=== PATIENT | female | born 1955 | race Caucasian/White ===

== ENCOUNTER → 2020-05-29 14:56 | Outpatient (BNVA) | payer OTHER, SELFPAY | PROVIDERS: Family Provider Family Medicine; Visit Provider Nurse Practitioner Family | DX: Z20.828 Contact with and (suspected) exposure to other viral communicable diseases (principal) | CPT/HCPCS: 87635 ==

== ENCOUNTER 2020-07-09 09:56 | Outpatient (CLI) | payer OTHER, SELFPAY ==
--- NOTE | 2020-07-09 10:01 | MM_ITS ---
WS: [id number] BILATERAL DIGITAL SCREENING MAMMOGRAPHY WITH CAD CLINICAL INFORMATION: SCREENING HISTORY: Screening mammogram. No current complaints. COMPARISON: TECHNIQUE: Bilateral CC and MLO views. FINDINGS: Scattered fibroglandular densities bilaterally. No suspicious focal mass, asymmetry, calcifications, or architectural distortion. No evidence of malignancy. Punctate and lucent centered calcifications. Stable intramammary lymph node upper left breast. MM/[place] [id number] IMPRESSION: BI-RADS: 2-Benign FOLLOW UP: 1 Year Follow-up Recommend return to annual screening mammography.
== END 2020-07-09 09:57 | disposition home or self-care (01) ==
LOC: RADSHAW 09:59
PROVIDERS: PCP Family Medicine; Visit Provider Family Medicine
DX: Z12.31 Encounter for screening mammogram for malignant neoplasm of breast (principal)
CPT/HCPCS: 77067

== ENCOUNTER 2021-05-20 08:23 | Outpatient (CLI) | payer OTHER, SELFPAY ==
--- NOTE | 2021-05-20 08:45 | US_ITS ---
WS: [id number] ULTRASOUND THYROID TECHNIQUE: Ultrasound of the thyroid. CLINICAL INFORMATION: thyroid nodule COMPARISON: Ultrasound 2016 and thyroid scintigraphy 2016 FINDINGS: Thyroid: Right and left thyroid lobes are normal in size with heterogeneous echotexture. Bilateral th yroid nodules. Largest complex nodule in the right measuring 0.5 x 0.7 x 0.9 cm and the largest solid heterogeneous nodule in the left measuring 3.1 x 2.9 x 3.2 cm in the mid thyroid. Right thyroid lobe: 5.7 cm x 1.9 cm x 1.9 cm Left thyroid lobe: 5.5 cm x 3.1 cm x 3.3 cm. Isthmus: 0.5 mm. Cervical lymphadenopathy: None. US/US thyroid [id number] IMPRESSION: 1. Enlarged heterogeneous thyroid similar in appearance to 2016 compatible wit h multinodular goiter. 2. Largest complex nodule in the right measuring 0.5 x 0.7 x 0.9 cm and the la rgest solid heterogeneous nodule in the left measuring 3.1 x 2.9 x 3.2 cm in th e mid thyroid. These are new or progressed compared to 2016. 3. Dominant left-sided nodule can be further evaluated with FNA.
== END 2021-05-20 08:24 | disposition home or self-care (01) ==
LOC: RAD 08:25
PROVIDERS: PCP Family Medicine; Visit Provider Internal Medicine
DX: E04.1 Nontoxic single thyroid nodule (principal); E04.9 Nontoxic goiter, unspecified
CPT/HCPCS: 76536

== ENCOUNTER → 2021-07-01 10:10 | Outpatient (BNVA) | payer OTHER, SELFPAY | PROVIDERS: PCP Family Medicine; Visit Provider Internal Medicine | DX: E03.9 Hypothyroidism, unspecified (principal); E05.90 Thyrotoxicosis, unspecified without thyrotoxic crisis or storm; E04.1 Nontoxic single thyroid nodule; F17.200 Nicotine dependence, unspecified, uncomplicated | CPT/HCPCS: 99214 ==

== ENCOUNTER → 2021-08-11 13:35 | Outpatient (BNVA) | payer OTHER, SELFPAY | PROVIDERS: PCP Family Medicine; Visit Provider Nurse Practitioner Family | DX: Z20.822 Contact with and (suspected) exposure to COVID-19 (principal) | CPT/HCPCS: 87635 ==

== ENCOUNTER 2021-09-08 08:56 | Outpatient (CLI) | payer OTHER, SELFPAY ==
[2021-09-08 10:46] LABS: Thyroid Stimulating Hormone 2.21 uIU/mL (0.27-4.20)
[2021-09-08 21:23] LABS: Free T4 Free Thyroxine 1.48 ng/dL (0.82-1.77)
[2021-09-09 09:47] LABS: T3 Total 116 ng/dL (76-181)
== END 2021-09-08 08:57 | disposition home or self-care (01) ==
LOC: RAD 09:01
PROVIDERS: PCP Family Medicine; Visit Provider Internal Medicine
DX: E04.1 Nontoxic single thyroid nodule (principal); E05.90 Thyrotoxicosis, unspecified without thyrotoxic crisis or storm
CPT/HCPCS: 36415; 84439; 84443; 84480

== ENCOUNTER 2021-09-09 10:36 | Outpatient (CLI) | payer OTHER, SELFPAY ==
--- NOTE | 2021-09-09 10:52 | MM_ITS ---
WS: [id number] BILATERAL DIGITAL SCREENING MAMMOGRAPHY WITH CAD CLINICAL INFORMATION: SCREENING HISTORY: Screening mammogram. No current complaints. COMPARISON: July 09, 2020 TECHNIQUE: Bilateral CC and MLO views. FINDINGS: Scattered fibroglandular densities bilaterally. Punctate and lucent centered calcifications. Stable o void intramammary lymph node upper outer LEFT breast. No suspicious focal mass, asymmetry, calcificat ions, or architectural distortion. No evidence of malignancy. MM/[place] [id number] IMPRESSION: BI-RADS: 2-Benign FOLLOW UP: 1 Year Follow-up Recommend return to annual screening mammography.
== END 2021-09-09 10:37 | disposition home or self-care (01) ==
LOC: RADSHAW 10:38
PROVIDERS: PCP Family Medicine; Visit Provider Family Medicine
DX: Z12.31 Encounter for screening mammogram for malignant neoplasm of breast (principal)
CPT/HCPCS: 77067

== ENCOUNTER 2021-09-15 09:08 | Outpatient (CLI) | payer OTHER, SELFPAY ==
--- NOTE | 2021-09-15 09:18 | NM_ITS ---
WS: [id number] NUCLEAR MEDICINE 24 HOUR I-123 THYROID UPTAKE INDICATION: Thyroid nodule TECHNIQUE: I-123 24 HOUR THYROID UPTAKE WITH PLANAR IMAGING. 131 UCI MANOJ 123 COMPARISON: Ultrasound May 20, 2021 and thyroid uptake December 03, 2015. Prior ultrasounds November 09, 2015 FINDINGS: Imaging performed at 24 hours post ingestion of iodine capsule. Marker placed over the chin and suprasternal notch. Elevated 24hour thyroid uptake measuring 61.9%. This is increased since 2016. Increased radiotracer a ctivity in the LEFT upper lobe thyroid nodule. More normal-appearing uptake in the RIGHT thyroid lobe . No cold nodules. NORMAL 24H THRYOID UPTAKE 8-35% NM/NM thyroid uptake multi [id number] IMPRESSION: 1. Elevated 24-hour thyroid uptake 61.9% (normal 8-35%). This is increased sin ce December 03, 2015 where it measured 14%. Recommend correlation for hyperthyroidis m/thyroiditis. 2. Increased uptake in a LEFT upper thyroid lobe nodule similar to 2016. No co ld nodules.
== END 2021-09-15 09:09 | disposition home or self-care (01) ==
LOC: RAD 09:11
PROVIDERS: PCP Family Medicine; Visit Provider Internal Medicine
DX: E04.1 Nontoxic single thyroid nodule (principal)
CPT/HCPCS: 78014; A9516

== ENCOUNTER 2021-10-06 10:03 | Outpatient (CLI) | payer OTHER, SELFPAY ==
[2021-10-06 11:22] LABS: Free T4 Free Thyroxine 1.39 ng/dL (0.82-1.77); Thyroid Stimulating Hormone 1.21 uIU/mL (0.27-4.20)
[2021-10-07 10:32] LABS: T3 Total 115 ng/dL (76-181)
== END 2021-10-06 10:04 | disposition home or self-care (01) ==
PROVIDERS: PCP Family Medicine; Visit Provider Internal Medicine
DX: E05.10 Thyrotoxicosis with toxic single thyroid nodule without thyrotoxic crisis or storm (principal)
CPT/HCPCS: 84439; 84443; 84480

== ENCOUNTER 2021-11-04 07:31 | Day surgery (SDC) | payer OTHER, SELFPAY ==
--- NOTE | 2021-11-04 08:24 | ANES.PREANE2 ---
Pre-Anesthetic Assessment Height/Weight: Height 1.57 m Weight 120.202 kg Preop Diagnosis: HISTORY OF COLON POLYPS Operation Date: 11/04/21 09:00 Proposed Procedures p Colonoscopy 99141/z86.010(Not Applicable) - Bereket Corado MD Familial anesthetic complications: None Was Beta Gely taken within 24 hours: Yes (11/04/21) Was Clonidine taken within 24 hours: N/A Last intake: 11/03/21 Social Tobacco and No alcohol Exam alert, oriented x 3, clear to auscultation bilaterally and regular rate & rhythm Airway Submandibular: within normal limits Cervical ROM: within normal limits Mallampati: Class III Dentition: chipped Pulmonary Stop Bang Score of 6 CV/HEM Hypertension None reported Hepatic None reported GI None reported Metabolic Morbid Obesity and Thyroid Disease (Hyperthyroidism - TSH, T4, T3 on 09/2021 WNL ) Musc/skel Osteoarthritis/DJD Neuropsych None reported Anesthetic Plan ASA status: 3 (66 year old morbidly obese female smoker w/ hyperthyroidism and stop bang score of 6) Anesthesia: Anesthesia Evaluation, General and MAC Other: I discussed with the patient risks, goals, and benefits of MAC and general anesthesia. We discussed spectrum of MAC anesthesia including conversion to general as well as possibility of recall of intraoperative stimuli including discomfort/pain. Patient agrees to proceed with MAC. Risk of > 500 ml blood loss (7ml/kg in children): No Medications/Allergies Home Medications Medication Instructions Recorded Confirmed Last Taken Type methimazole 5 mg tablet 5 mg PO DAILY #90 tab 04/12/21 11/02/21 Unknown Rx carvedilol 12.5 mg tablet 12.5 mg PO BID 07/01/21 11/02/21 Unknown History lisinopril 20 1 tab PO DAILY 07/01/21 11/02/21 Unknown History mg-hydrochlorothiazide 12.5 mg tablet Allergies Allergy/AdvReac Type Severity Reaction Status Date / Time Sulfa (Sulfonamide Allergy upset Verified 10/14/21 11:12 Antibiotics) stomach PFSH Anesthesia Medical History Thyroid nodule Surgical History No pertinent past surgical history Family History Mother Hypertension Diabetes Father No problems noted. Denies family history of Dementia Social History Smoking and tobacco status: former smoker Alcohol intake: never Data Anesthesia Cardiac Studies: No Data to Display
[2021-11-04 08:36] VITALS: BP 166/95; PULSE 71; RESP 18; TEMP 36.6; O2SAT 100
[2021-11-04] MEDS: sodium chloride 0.9% 1,000 ML 30 ML IV (08:47)
--- NOTE | 2021-11-04 08:58 | W.PM.OPSFHP ---
Same Day Surgery H&P Indication for Procedure/HPI DATE OF PROCEDURE: November 04, 2021 CHIEF COMPLAINT/INDICATIONFOR SURGICAL PROCEDURE: History of colon polyps PREOP DIAGNOSIS: HISTORY OF COLON POLYPS PLANNED PROCEDURE: Operation Date: 11/04/21 09:00 Proposed Procedures p Colonoscopy 41588/z86.010(Not Applicable) - Bereket Corado MD 08/19/2021 This is a pleasant 66 years old female patient well-known to me before 4 years where she did undergo colonoscopy was found to have colon polyps.? Patient denies any bleeding per rectum or history of colon cancer.? Patient is referred to my practice for surveillance colonoscopy. 11/04/21 Patient comes today for surveillance colonoscopy ROS All systems have been reviewed negative except as per the above or per problem Medications/Allergies* Home Medications Medication Instructions Recorded Confirmed Type carvedilol 12.5 mg tablet 12.5 mg PO BID 07/01/21 11/04/21 History lisinopril 20 1 tab PO DAILY 07/01/21 11/04/21 History mg-hydrochlorothiazide 12.5 mg tablet Allergies/Adverse Reactions Allergy/AdvReac Type Severity Reaction Status Date / Time Sulfa (Sulfonamide Allergy upset Verified 11/04/21 08:59 Antibiotics) stomach Current Medications: Generic Name Dose Route Start Last Admin Trade Name Freq PRN Reason Stop Dose Admin Sodium Chloride 1,000 mls @ 30 mls/hr 11/04/21 08:00 11/04/21 08:47 Sodium Chloride 0.9% IV 30 mls/hr .Q24H ALVIN Administration Pertinent History/Comorbid Conditions* Medical History (Updated 08/20/21 @ 13:09 by Bereket Corado MD) Thyroid nodule Surgical History (Updated 03/25/21 @ 13:22 by Tanvir Piper MD) No pertinent past surgical history Family History (Updated 05/29/20 @ 12:42 by Mckenzie Matta LPN) Diabetes Mother Hypertension Mother Denies family history of Dementia Social History Smoking and tobacco status: former smoker Alcohol intake: never Pertinent Exam Findings alert, oriented x 3, regular rate & rhythm and procedure specific exam findings (Abdominal examination nontender nondistended soft) Recommendations Surgery/Procedure today ( Surveillance colonoscopy) Coding Level of Care Code Acute Signs And Displays Sales Representative for Alba Bertrand
[2021-11-04 10:13] VITALS: BP 120/63; PULSE 88; RESP 18; TEMP 36.5; O2SAT 97
[2021-11-04 10:25] VITALS: BP 138/74; PULSE 65; RESP 18; TEMP 36.7; O2SAT 95
--- NOTE | 2021-11-04 13:51 | ANE.PACU2 ---
Inpatient post-anesthesia follow up: Airway intact: Yes Vital signs: Temperature 98.1 F Pulse Rate 65 Respiratory Rate 18 Blood Pressure 138/74 Pulse Oximetry 95 Oxygen Delivery Me thod Room Air Oxygen Flow Rate Fraction of Inspir ed Oxygen Hydration adequate: Yes Nausea and vomiting: No Pain level: 1 Mental status: Baseline
== END 2021-11-04 10:40 | disposition home or self-care (01) ==
PROVIDERS: PCP Family Medicine; Visit Provider Surgery
PROC: 0DJD8ZZ Inspection of Lower Intestinal Tract, Via Natural or Artificial Opening Endoscopic (ICD-10-PCS; CPT 45378; principal; 2021-11-04 09:00)
DX: Z12.11 Encounter for screening for malignant neoplasm of colon (principal); D12.8 Benign neoplasm of rectum; K57.30 Diverticulosis of large intestine without perforation or abscess without bleeding; Z86.010 Personal history of colon polyps; Z82.49 Family history of ischemic heart disease and other diseases of the circulatory system; Z83.3 Family history of diabetes mellitus; Z87.891 Personal history of nicotine dependence; E66.01 Morbid (severe) obesity due to excess calories; Z68.42 Body mass index [BMI] 45.0-49.9, adult; E03.9 Hypothyroidism, unspecified
CPT/HCPCS: 45380; 88305; J2704; J7030

== ENCOUNTER 2021-12-23 09:10 | Outpatient (CLI) | payer OTHER, SELFPAY ==
--- NOTE | 2021-12-23 09:30 | US_ITS ---
WS: [id number] ULTRASOUND THYROID FNA CLINICAL INFORMATION: thyroid nodule TECHNIQUE: Ultrasound-guided FNA FINDINGS: The procedure including risks, benefits, and complications were discussed with the patient who agreed to proceed. Timeout was performed. Using sterile technique patient was prepped and draped in usual sterile fashion. After 1% lidocaine, using ultrasound guidance, a 25-gauge needle was advanc ed into the LEFT thyroid nodule. 5 passes were made with active aspiration. Pathology was present for slide preparation. No immediate complications. Patient remained in the ultrasound suite 20 minutes postprocedure with intermittent ultrasound to ens ure no hematoma. No hematoma 15 minutes postprocedure. US/US biopsy/FNA thyroid [id number] IMPRESSION: 1. Uncomplicated ultrasound-guided thyroid FNA 2. Cytology is pending.
== END 2021-12-23 09:11 | disposition home or self-care (01) ==
PROVIDERS: PCP Family Medicine; Visit Provider Internal Medicine
DX: E04.1 Nontoxic single thyroid nodule (principal)
CPT/HCPCS: 10005; 88173; 88305

== ENCOUNTER → 2022-04-14 13:12 | Outpatient (BNVA) | payer OTHER, SELFPAY | PROVIDERS: PCP Family Medicine; Visit Provider Family Medicine | DX: E05.90 Thyrotoxicosis, unspecified without thyrotoxic crisis or storm (principal); E04.1 Nontoxic single thyroid nodule | CPT/HCPCS: 84439; 84443; 84480 ==

== ENCOUNTER → 2022-06-30 12:23 | Outpatient (BNVA) | payer OTHER, SELFPAY | PROVIDERS: PCP Family Medicine; Visit Provider Family Medicine | DX: Z51.81 Encounter for therapeutic drug level monitoring (principal); R73.03 Prediabetes; I10 Essential (primary) hypertension | CPT/HCPCS: 80053; 80061; 83036; 85025 ==

== ENCOUNTER → 2022-10-04 10:56 | Outpatient (BNVA) | payer MEDICARE, SELFPAY | PROVIDERS: PCP Family Medicine; Visit Provider Family Medicine | DX: Z51.81 Encounter for therapeutic drug level monitoring (principal); R74.8 Abnormal levels of other serum enzymes; E05.90 Thyrotoxicosis, unspecified without thyrotoxic crisis or storm; E04.1 Nontoxic single thyroid nodule; I10 Essential (primary) hypertension; G47.10 Hypersomnia, unspecified | CPT/HCPCS: 80053; 86141 ==

== ENCOUNTER → 2023-03-03 10:54 | Outpatient (BNVA) | payer MEDICARE, SELFPAY | PROVIDERS: PCP Family Medicine; Visit Provider Family Medicine | DX: Z51.81 Encounter for therapeutic drug level monitoring (principal); Z13.220 Encounter for screening for lipoid disorders; E03.9 Hypothyroidism, unspecified; M79.10 Myalgia, unspecified site; F32.A Depression, unspecified; I10 Essential (primary) hypertension; G47.10 Hypersomnia, unspecified; E05.90 Thyrotoxicosis, unspecified without thyrotoxic crisis or storm | CPT/HCPCS: 80053; 80061; 83735; 84439; 84443; 85025 ==

== ENCOUNTER → 2023-03-16 15:14 | Outpatient (BNVA) | payer MEDICARE, SELFPAY | PROVIDERS: PCP Family Medicine; Visit Provider Family Medicine | DX: R79.89 Other specified abnormal findings of blood chemistry (principal); Z51.81 Encounter for therapeutic drug level monitoring; N18.4 Chronic kidney disease, stage 4 (severe); I10 Essential (primary) hypertension | CPT/HCPCS: 80053; 81000; 81003; 82570; 84156; 84166; 85025 ==

== ENCOUNTER 2023-03-21 14:42 | Outpatient (CLI) | payer MEDICARE, SELFPAY ==
--- NOTE | 2023-03-21 14:45 | US_ITS ---
WS: [id number] RENAL ULTRASOUND REASON FOR EXAM: Increasing Creatinine COMPARISON: None available. ORDER DATE: 03/21/2023 2:51 PM TECHNIQUE: Grayscale and Doppler ultrasound examination of the kidneys. FINDINGS: Right kidney: Right kidney measures 9.5 cm x 5.4 cm x 5.5 cm. Cortex 1.3 cm with a few simple cysts o ne measuring about 1 cm in diameter in the mid kidney. Left kidney: Left kidney measures 10.6 cm x 4.1 cm x 6.0 cm. Cortex 1.4 cm few simple cysts are prese nt 1 phone representative cyst in the lower pole measuring 18 mm in average diameter The urinary bladder outline is unremarkable and goes from a volume of 84 cc to a volume of approximat diann 5 cc on the post void image. Normal duplex flow demonstrated in each kidney. IMPRESSION: Small bilateral renal cysts. Normal echotexture of the renal parenchyma bilaterally. No specific abno rmality demonstrated of the bladder.
== END 2023-03-21 14:43 | disposition home or self-care (01) ==
PROVIDERS: PCP Family Medicine; Visit Provider Family Medicine
DX: R79.89 Other specified abnormal findings of blood chemistry (principal); I10 Essential (primary) hypertension; N28.1 Cyst of kidney, acquired
CPT/HCPCS: 76770; 76857

== ENCOUNTER → 2023-03-24 11:25 | Outpatient (BNVA) | payer MEDICARE, SELFPAY | PROVIDERS: PCP Family Medicine; Visit Provider Family Medicine | DX: N18.4 Chronic kidney disease, stage 4 (severe) (principal) | CPT/HCPCS: 80053; 81003; 82570; 84156; 85025 ==

== ENCOUNTER 2023-04-11 10:09 | Outpatient (CLI) | payer MEDICARE, SELFPAY ==
--- NOTE | 2023-04-11 | ECG_ITS ---
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 Interpretive Statements NAME OF STUDY: LEXISCAN SESTAMIBI STRESS TEST INDICATION: Chest Pain PROCEDURE: At the baseline, the blood pressure was 114/63 mm Hg, oxygen saturation of 93% with a heart rate of 57 bpm. The electrocardiogram showed sinus bradycardia, right axis deviation. Normal ST and T's. The Lexiscan was infused over a period of 20 seconds. A total of 0.4 milligrams of Lexiscan was infused. The stress phase was continued for a total of 5 minutes. Heart rate at the end of the stress phase was 74 bpm, oxygen saturation of 93% with a blood pressure of 124/63 mm Hg. The EKG at the peak infusion revealed no significant ST-T wave changes. Sestamibi was injected 20 seconds after the Lexiscan infusion. Blood pressure at the end of the recovery phase was 132/64 mm Hg, oxygen saturation of 93% with a heart rate of 80 beats per minute. CONCLUSION: 1. No significant EKG changes with the LexiScan infusion. 2. No LexiScan induced chest pain or cardiac arrhythmia. 3. Normal blood pressure and heart rate response. 4. Sestamibi/sestamibi perfusion scan pending; see separate report. Electronically Signed On 04-14-2023 19:26:42 CDT by Dinora White M.D. [id number]
[2023-04-11 10:23] VITALS: BMI 43.9
--- NOTE | 2023-04-11 10:36 | NMCV_ITS ---
NM tariq perf SPECT r/s* [id number] Odalis Tovar Age: 68 Gender: F : 1955 Exam Date: 04/11/2023 10:36 Ordering Phys: Prasad Larsen MD Technologist: ANGELLA Callaway Exam Location: [facility] Indications: CHEST PAIN STRESS TEST [facility] IMAGE PROTOCOL Rest/Stress 1 Lexiscan Day Radiopharmaceutical Dose (mCi) Administration Site Administered by Rest: Tc-99m 10.5 IV ANGELLA Granados Sestamibi Stress:Tc-99m 32.8 IV ANGELLA Callaway Sestamimarlene Rest: 11-Apr-2023 60 Discovery 630 Stress: 11-Apr-2023 30 Discovery 630 0.4mg Lexiscan. Supine position only as patient was unable to lay prone. SPECT RESULTS Technical Quality: Excellent Raw Data Analysis: Normal Image Corrections: No attenuation or motion correction applied Summed Stress Score: 1 Summed Rest Score: 0 Summed Difference Score: 1 PERFUSION FINDINGS SPECT images demonstrate homogeneous tracer distribution throughout the myocardium. FUNCTIONAL RESULTS (calculated via Gated SPECT) Stress Image LV EF (%): 87 Stress EDV (mL):77 TID: 1.12 Stress ESV (mL):10 FUNCTIONAL FINDINGS: The left ventricle is normal in size. Transient Ischemia Dilatation of 1.1. The left ventricular ejection fraction is normal with a value of 87%. There is normal left ventricular wall thickening. IMPRESSIONS 1. Myocardial perfusion imaging is normal. 2. Overall left ventricular systolic function is normal without regional wall motion abnormalities, LVEF=87%. 3. EKG portion of the study will be reported separately. 4. Scan indicates low risk for cardiac events. Dinora White MD (Electronically Signed) Final Date: 11 April 2023 17:55 S
[2023-04-11] MEDS: regadenoson 0.4 Mg/5 ml Syringe IVP (12:11)
[2023-04-11 12:34] VITALS: BP 132/64; PULSE 70
== END 2023-04-11 10:10 | disposition home or self-care (01) ==
LOC: CDL 10:11
PROVIDERS: PCP Family Medicine; Visit Provider Family Medicine
DX: R07.9 Chest pain, unspecified (principal)
CPT/HCPCS: 36415; 78452; 93017; 96374; A9500; J2785

== ENCOUNTER 2023-04-20 15:08 | Outpatient (CLI) | payer MEDICARE, SELFPAY ==
[2023-04-20 16:12] LABS: Free T4 Free Thyroxine 1.24 ng/dL (0.82-1.77); Thyroid Stimulating Hormone 2.58 uIU/mL (0.27-4.20)
== END 2023-04-20 15:09 | disposition home or self-care (01) ==
LOC: LAB 15:10
PROVIDERS: PCP Family Medicine; Visit Provider Internal Medicine
DX: E04.1 Nontoxic single thyroid nodule (principal); E05.90 Thyrotoxicosis, unspecified without thyrotoxic crisis or storm
CPT/HCPCS: 36415; 84439; 84443

== ENCOUNTER → 2023-04-27 10:00 | Outpatient (BNVA) | payer MEDICARE, SELFPAY | PROVIDERS: PCP Family Medicine; Visit Provider Internal Medicine | DX: E05.90 Thyrotoxicosis, unspecified without thyrotoxic crisis or storm (principal); E04.1 Nontoxic single thyroid nodule | CPT/HCPCS: 99214 ==

== ENCOUNTER → 2023-09-20 11:56 | Outpatient (BNVA) | payer MEDICARE, SELFPAY | PROVIDERS: PCP Family Medicine; Visit Provider Family Medicine | DX: Z51.81 Encounter for therapeutic drug level monitoring (principal); R73.09 Other abnormal glucose | CPT/HCPCS: 80053; 83036; 85025 ==

== ENCOUNTER → 2023-09-22 12:38 | Outpatient (BNVA) | payer MEDICARE, SELFPAY | PROVIDERS: PCP Family Medicine; Visit Provider Family Medicine | DX: R30.0 Dysuria (principal) | CPT/HCPCS: 87086 ==

== ENCOUNTER → 2024-02-20 10:15 | Outpatient (BNVA) | payer MEDICARE, SELFPAY | PROVIDERS: PCP Family Medicine; Visit Provider Podiatrist Foot & Ankle Surgery | DX: Q82.8 Other specified congenital malformations of skin | CPT/HCPCS: 17110; 73630 ==

== ENCOUNTER → 2024-03-19 14:15 | Outpatient (BNVA) | payer MEDICARE, SELFPAY | PROVIDERS: PCP Family Medicine; Visit Provider Podiatrist Foot & Ankle Surgery | DX: Q82.8 Other specified congenital malformations of skin | CPT/HCPCS: 17110 ==

== ENCOUNTER → 2024-05-27 14:20 | Outpatient (BNVA) | payer MEDICARE, SELFPAY | PROVIDERS: PCP Family Medicine; Visit Provider Podiatrist Foot & Ankle Surgery | DX: Q82.8 Other specified congenital malformations of skin (principal) | CPT/HCPCS: 99213 ==

== ENCOUNTER → 2025-02-28 11:02 | Outpatient (BNVA) | payer MEDICARE, SELFPAY | PROVIDERS: PCP Family Medicine; Visit Provider Family Medicine | DX: Z00.00 Encounter for general adult medical examination without abnormal findings (principal); E11.9 Type 2 diabetes mellitus without complications; Z51.81 Encounter for therapeutic drug level monitoring | CPT/HCPCS: 83036; 85025 ==

== ENCOUNTER 2025-03-07 14:35 | Outpatient (CLI) | payer MEDICARE, SELFPAY ==
--- NOTE | 2025-03-07 14:40 | MM_ITS ---
WS: [id number] BILATERAL 3D TOMOSYNTHESIS DIGITAL SCREENING MAMMOGRAPHY WITH CAD CLINICAL INFORMATION: Screening HISTORY: Screening mammogram. No current complaints. COMPARISON: 2021 TECHNIQUE: Bilateral CC and MLO views. FINDINGS: Scattered fibroglandular densities bilaterally. Slightly spiculated lesion anterior lateral RIGHT breast measuring 9 mm more prominent compared to previous. Recommend further evaluation with RIGHT breast diagnostic mammography and ultrasound if persistent. Unremarkable LEFT breast. MM/MM scr tomosynthesis [id number] IMPRESSION: DENSITY: There are scattered areas of fibroglandular density. BI-RADS: 0 - Incomplete: Need additional imaging evaluation. FOLLOW UP: Need Additional Imaging Recommend RIGHT breast diagnostic mammography and ultrasound if persistent.
--- NOTE | 2025-03-07 15:00 | XR_ITS ---
WS: [id number] DEXA (DUAL ENERGY X-RAY ABSORPTIOMETRY) Bone mineral density was performed using a [employer] machine. HISTORY: Postmenopausal COMPARISON: None available. Lumbar spine BMD (L1-L4): 1.252 g/cm2 T score: 0.6 Z score: 1.1 Total hip BMD: Left: 0.969 g/cm2. T score: -0.3 Z score: 0.2 Right: 0.984 g/cm2. T score: -0.2 Z score: 0.3 10 year probability of a major osteoporotic fracture is 9.0%. XR/XR DEXA axial skeleton* [id number] IMPRESSION: NORMAL BONE MINERAL DENSITY based upon the WHO classification for females.
== END 2025-03-07 14:36 | disposition home or self-care (01) ==
LOC: RAD 14:37
PROVIDERS: PCP Family Medicine; Visit Provider Family Medicine
DX: Z12.31 Encounter for screening mammogram for malignant neoplasm of breast (principal); Z13.820 Encounter for screening for osteoporosis; N63.13 Unspecified lump in the right breast, lower outer quadrant; R92.323 Mammographic fibroglandular density, bilateral breasts; Z78.0 Asymptomatic menopausal state
CPT/HCPCS: 77063; 77067; 77080

== ENCOUNTER 2025-03-17 14:19 | Outpatient (CLI) | payer MEDICARE, SELFPAY ==
--- NOTE | 2025-03-17 14:33 | MM_ITS ---
WS: [id number] RIGHT 3D TOMOSYNTHESIS DIGITAL MAMMOGRAPHY WITH CAD CLINICAL INFORMATION: ABNORMAL MAMMOGRAM HISTORY: Additional views COMPARISON: 03/07/2025 TECHNIQUE: 3 views of the right breast were obtained. FINDINGS: Scattered fibroglandular densities of the right breast. Slightly spiculated lesion anterior lateral RIGHT breast measuring 9 mm is again seen. This persists on the spot compression views. Ultrasound is pending. ULTRASOUND BREAST RIGHT TECHNIQUE: Ultrasound right breast focused area of concern. CLINICAL INFORMATION: ABNORMAL MAMMOGRAM FINDINGS: Ultrasound upper outer RIGHT breast. Incidental tiny cyst at the 12 o'clock position 2 cm from the nipple measuring 5 x 2 mm. Associated through transmission. No other suspicious findings. MM/MM diag RT tomosynthesis [id number] IMPRESSION: DENSITY: There are scattered areas of fibroglandular density. BI-RADS: 2 - Benign. FOLLOW UP: 1 Year Follow-up Recommend return to annual screening mammography.
== END 2025-03-17 14:20 | disposition home or self-care (01) ==
LOC: RAD 14:20
PROVIDERS: PCP Family Medicine; Visit Provider Family Medicine
DX: R92.8 Other abnormal and inconclusive findings on diagnostic imaging of breast (principal); R92.321 Mammographic fibroglandular density, right breast; N60.01 Solitary cyst of right breast
CPT/HCPCS: 76642; 77061; G0279

== ENCOUNTER → 2025-06-02 11:15 | Outpatient (BNVA) | payer MEDICARE, SELFPAY | PROVIDERS: PCP Family Medicine; Visit Provider Family Medicine | DX: E55.9 Vitamin D deficiency, unspecified (principal); Z51.81 Encounter for therapeutic drug level monitoring; R73.03 Prediabetes; Z13.6 Encounter for screening for cardiovascular disorders | CPT/HCPCS: 80053; 80061; 82306; 83036; 85025 ==